=== PATIENT | female | born 1980 | race Caucasian/White ===

== ENCOUNTER 2020-01-23 16:59 | Emergency (ER) | payer OTHER, SELFPAY ==
[2020-01-23 17:00] VITALS: BP 209/82; PULSE 88; RESP 18; TEMP 36.9; O2SAT 96; BMI 56.8
--- NOTE | 2020-01-23 17:39 | ED.DCSUM_ITS ---
- ER Visit Summary Date of Service: 01/23/20 Chief Complaint: Hypoglycemia History of Present Illness: The patient is a 39 F who presents with hyperglycemia that occurred today. Patient states she did not eat lunch today and her blood sugar dropped. Patient states she could feel her blood sugar going low and she took oral glucose tablets. Patient then had a syncopal episode. EMS states that the patient's blood sugar was in the 20s when they arrived. EMS administered IV glucose and her blood sugar improved to 76. Patient states she had a syncopal episode and woke up in the squad. Patient does not remember any of the events. Physical Examination: Vital signs are stable except for an elevated blood pressure of 209/82. Patient is afebrile. Patient is in no acute distress. Oral mucosa is pink and moist. Neck is supple. Trachea is midline. There is no JVD noted. Heart was regular rate and rhythm. Lungs are clear and equal bilaterally. Abdomen is soft. Bowel sounds are normal. There is no tenderness. There is no rebound or guarding noted. Skin is warm dry. Cranial nerves II through XII are intact. There are no focal motor or sensory deficits noted. Extremities are intact. There is no calf tenderness or edema. Test Results: CBC shows a mild leukocytosis of 11.4. Comprehensive metabolic profile showed a glucose of 51. Emergency Department Course and Treatment: Patient was given regular diet here in the emergency department. Patient remained awake and alert during her emergency department course. Repeat BGT was obtained and was 64. Patient was given more orange juice. Patient feels better and wants to go home. Patient was instructed to eat a regular diet tonight. Patient was instructed to continue her insulin as prescribed starting tomorrow morning. Patient was instructed to follow-up with her primary care physician in 3 to 5 days. Patient understood and was agreeable with the plan. All questions were answered. Disposition: Discharge home Impression: Hypoglycemia This note was generated with [employer] dictation software. It may contain incorrect words, spelling, and punctuation that were not noted in review of the chart prior to signing ED Disposition - Plan for ED Patient: Disposition: Home or Assisted Living Diagnosis: Hypoglycemia associated with diabetes Instructions: ED HYPOGLYCEMIA Insulin Rxn Referrals: NOT,DEFINED [NON-STAFF] - 5-7 Days
[2020-01-23 18:04] LABS: Absolute Neutrophil Count 8.7 X10^3/uL (2.0-7.7); Basophil# 0.05 X10^3/uL; Basophil% 0.4 % (0-1); Eosinophils% 1.7 % (0-5); Hematocrit 37.3 % (37-47); Hemoglobin 11.2 g/dL (12.0-15.0); Lymphocyte % 14.9 % (19-41); Mean Corpuscular Volume 86.5 fL (81-99); Mean Platelet Vol. 9.8 fl (6.2-12.0); Monocyte# 0.72 X10^3/uL; Monocyte% 6.3 % (0-10); NRBC Flagged by Analyzer 0 % (0-5); Neutrophil # 8.71 X10^3/uL (2.7-7.7); Neutrophil % 76.3 % (47-70); Platelet Count 449 K/mm3 (150-450); RBC Distribution Width CV 15.3 % (11.6-14.6); RBC Distribution Width SD 49.1 fl (35.1-43.9); Red Blood Count 4.31 M/mm3 (4.2-5.4); White Blood Count 11.4 K/mm3 (4.4-11.0)
[2020-01-23 18:21] LABS: ALB/GLOB Ratio 0.8 RATIO (0.9-2.4); AST(SGOT) 14 U/L (15-37); Alanine Aminotransfer ALT/SGPT 19 U/L (13-56); Albumin, Serum 3.6 g/dL (3.2-5.0); Alkaline Phosphatase 103 U/L (45-117); Anion Gap 5 (5-15); BUN 17 mg/dL (7-18); BUN/Creat Ratio 22.6 RATIO (10-20); Chloride 106 mmol/L (98-107); Creatinine, Serum 0.75 mg/dL (0.55-1.02); EST Glomerular Filtration Rate 90 mL/min (>60); Est Glom Filt Rate - Afr Amer 109 mL/min (>60); Estimated Creatinine Clearance 88.83 ml/min; Globulin 4.6 g/dL (2.2-4.2); Glucose 51 mg/dL (74-106); Potassium 3.6 mmol/L (3.5-5.1); Protein, Total 8.2 g/dL (6.4-8.2); Sodium Level 141 mmol/L (136-145)
[2020-01-23 19:40] LABS: Bedside Glucose 34 mg/dL (70-110)
[2020-01-23 19:40] LABS: Bedside Glucose 60 mg/dL (70-110)
[2020-01-23 19:40] LABS: Bedside Glucose 45 mg/dL (70-110)
[2020-01-23 19:40] LABS: Bedside Glucose 68 mg/dL (70-110)
== END 2020-01-23 19:37 | disposition home or self-care (01) ==
PROVIDERS: Emergency Provider Emergency Medicine
DX: E11.649 Type 2 diabetes mellitus with hypoglycemia without coma (principal)
CPT/HCPCS: 80053; 82962; 85025; 99285; A4216